=== PATIENT | female | born 1960 | race Caucasian/White ===

== ENCOUNTER 2025-01-26 02:24 | Emergency (ER) | payer SELFPAY ==
[2025-01-26 02:49] LABS: BASOPHILS ABSOLUTE AUTO 0.04 K/uL (0.00-0.20); BASOPHILS PERCENT AUTO 0.7 % (0.0-1.0); EOSINOPHILS ABSOLUTE AUTO 0.09 K/uL (0.00-0.45); EOSINOPHILS PERCENT AUTO 1.5 % (0.0-6.0); IMMATURE GRAN ABSOLUTE AUTO 0.01 K/uL (0.00-0.05); IMMATURE GRAN PERCENT AUTO 0.2 % (0.0-0.4); LYMPHOCYTES ABSOLUTE AUTO 3.39 K/uL (1.00-4.80); LYMPHOCYTES PERCENT AUTO 56.7 % (24.0-44.0); MEAN PLATELET VOLUME 9.9 fL (9.4-12.3); MONOCYTES ABSOLUTE AUTO 0.63 K/uL (0.00-0.80); MONOCYTES PERCENT AUTO 10.5 % (0.0-8.0); NEUTROPHILS ABSOLUTE AUTO 1.82 K/uL (1.80-7.70); NEUTROPHILS PERCENT AUTO 30.4 % (41.0-71.0); NRBC ABSOLUTE 0.00 K/uL (0.00-0.02); NRBC PERCENT 0.0 /100WBC (0.0-0.2); PLATELET COUNT,PLT 214 K/uL (150-400); RED BLOOD CELL COUNT 4.31 M/uL (4.10-5.30); WHITE BLOOD CELL COUNT,WBC 5.98 K/uL (3.9-11.3)
[2025-01-26 03:20] LABS: BLOOD UREA NITROGEN,BUN 9.0 mg/dL (7.0-18.0); CARBON DIOXIDE,CO2 26.7 mmol/L (21.0-32.0); CHLORIDE,CL 101.0 mmol/L (98-107); CREATININE 1.0 mg/dL (0.6-1.0); EST CRCL DRUG DOSING (CG) 53.2 mL/min; GLUCOSE RANDOM 106.0 mg/dL (74-106); POTASSIUM,K 3.9 mmol/L (3.5-5.1); SODIUM,NA 137.0 mmol/L (136-145); TSH ULTRASENSITIVE 4.37 uIU/mL (0.36-3.74)
[2025-01-26 03:21] LABS: ESTIMATED GFR 63.0 mL/min (>60)
[2025-01-26 03:37] LABS: T4 FREE 0.88 ng/dL (0.76-1.46)
== END 2025-01-26 04:46 | disposition home or self-care (01) ==
LOC: MW.ED 02:24
DX: R53.1 Weakness (principal); Z79.899 Other long term (current) drug therapy
CPT/HCPCS: 36415; 80048; 84439; 84443; 85025; 99284; A9270; 99283